=== PATIENT | female | born 1965 | race Caucasian/White ===

== ENCOUNTER 2017-10-07 15:24 | Observation (INO) | payer BC ==
[2017-10-07] VITALS (8 sets, daily range): BP systolic 102–136; BP diastolic 58–69; PULSE 101–127; RESP 16–20; TEMP 97.8–98.1; O2SAT 95–99
[~2017-10-07] VITALS: Ht 165.1 cm; Wt 81.0 kg
[2017-10-07] MEDS ORDERED: SERO100T PO (17:18)
[2017-10-07] MEDS ORDERED: LEVO.075 PO (17:18)
[2017-10-07] MEDS ORDERED: VENL75TA (17:18)
[2017-10-07] MEDS ORDERED: LAMO150T PO (17:18)
[2017-10-07] MEDS ORDERED: SODIUM CHLOR 0.9% 1000 ML INJ 1,000 ML IV SCH ×2 (17:23→20:46)
[2017-10-07] MEDS ORDERED: FAMOTIDINE 20 MG/2 ML VIAL IV PUSH ONE (17:30)
[2017-10-07] MEDS ORDERED: ONDANSETRON HCL 4 MG/2 ML VIAL IVP ONE (17:30)
[2017-10-07] MEDS ORDERED: MORPHINE SULFATE 4 MG/ML INJ IV PUSH ONE (17:30)
[2017-10-07] MEDS ORDERED: SODIUM CHLORIDE 0.9% FLUSH 10 ML FLUSH IV FLUSH PRN ×2 (17:30→21:00)
[2017-10-07 17:51] LABS: AUTOMATED NEUTROPHIL # 8.3 TH/MM3 (1.8-7.7); BASOPHIL # 0.2 TH/MM3 (0-0.2); BASOPHIL % 1.7 % (0.0-2.0); EOSINOPHIL % 0.4 % (0.0-4.0); HEMATOCRIT 38.8 % (35.0-46.0); LYMPH % 4.2 % (9.0-44.0); LYMPHOCYTE # 0.4 TH/MM3 (1.0-4.8); MEAN CELL VOLUME 92.5 FL (80.0-100.0); MEAN CORPUSCULAR HGB CONC 33.5 % (32.0-36.0); MEAN PLATELET VOLUME 7.5 FL (7.0-11.0); MONO % 4.6 % (0.0-8.0); MONOCYTE # 0.4 TH/MM3 (0-0.9); NEUT % 89.1 % (16.0-70.0); PLATELET COUNT 266 TH/MM3 (150-450); RED CELL DISTRIBUTION WIDTH 13.4 % (11.6-17.2); WHITE BLOOD COUNT 9.3 TH/MM3 (4.0-11.0)
[2017-10-07 18:02] LABS: CALCIUM 8.7 MG/DL (8.5-10.1)
[2017-10-07 18:03] LABS: BICARBONATE 25.2 MEQ/L (21.0-32.0)
[2017-10-07 18:06] LABS: CREATININE 0.86 MG/DL (0.50-1.00); PROTHROMBIN TIME - PATIENT 10.5 SEC (9.8-11.6)
[2017-10-07] MEDS ORDERED: IOHEXOL 350 MG/ML 10 ML VIAL (for RAD DIAG) IVCONTRAST ONE (18:39)
--- NOTE | 2017-10-07 18:48 | RADRPT ---
EXAM DATE/TIME: 10/07/2017 18:34 [facility] COMPARISON: No previous studies available for comparison. INDICATIONS : Epigastric pain, nausea and vomiting. IV CONTRAST: 85 cc Omnipaque 350 (iohexol) IV ORAL CONTRAST: No oral contrast ingested. RADIATION DOSE: 12.86 CTDIvol (mGy) MEDICAL HISTORY : Hypothyroidism. SURGICAL HISTORY : Cholecystectomy. ENCOUNTER: Initial ACUITY: 1 day PAIN SCALE: 5/10 LOCATION: Epigastric. TECHNIQUE: Volumetric scanning of the abdomen and pelvis was performed. Using automated exposure control and ad justment of the mA and/or kV according to patient size, radiation dose was kept as low as reasonably achievable to obtain optimal diagnostic quality images. DICOM format image data is available electro nically for review and comparison. FINDINGS: LOWER LUNGS: The visualized lower lungs are clear. LIVER: Homogeneous density without lesion. There is no dilation of the biliary tree. Previous cholecystecto my. SPLEEN: Normal size without lesion. PANCREAS: Within normal limits. KIDNEYS: Normal in size and shape. There is no mass, stone or hydronephrosis. ADRENAL GLANDS: Within normal limits. VASCULAR: There is no aortic aneurysm. BOWEL/MESENTERY: The stomach, small bowel, and colon demonstrate no acute abnormality. There is no free intraperitone al air or fluid. Normal appendix. ABDOMINAL WALL: Within normal limits. RETROPERITONEUM: There is no lymphadenopathy. BLADDER: No wall thickening or mass. REPRODUCTIVE: 22 and 32 mm simple appearing right ovarian cysts. No free fluid or perceptible inflammatory changes. INGUINAL: There is no lymphadenopathy or hernia. MUSCULOSKELETAL: Within normal limits for patient age. CONCLUSION: 1. Benign-appearing cysts of the right ovary. A followup pelvic ultrasound is suggested in 8-12 weeks to confirm resolution. 2. Otherwise negative CT of the abdomen and pelvis. I don't see a correlate for epigastric pain. Prev ious cholecystectomy. Abhay Howard MD on October 07, 2017 at 18:44 Board Certified Radiologist. This report was verified electronically.
[2017-10-07] MEDS ORDERED: LIDOCAINE VISCOUS 2% SOLN 15 ML UDC PO ONE (19:15)
[2017-10-07] MEDS ORDERED: LORazepam 0.5 MG TAB PO ONE (19:15)
[2017-10-07] MEDS ORDERED: DICYCLOMINE HCL 10 MG CAP PO ONE (19:15)
[2017-10-07] MEDS ORDERED: ALUMINUM/MAGNESIUM/SIMETH 30 ML CUP PO ONE (19:15)
--- NOTE | 2017-10-07 20:40 | PD ---
HPI Chief Complaint: Abdominal Pain Time Seen by Provider: 17:12 Travel History International Travel<30 days: No Contact w/Intl Traveler<30days: No Traveled to known affect area: No History of Present Illness HPI Patient is a 52-year-old female who comes in complaining of chest pain with nausea and vomiting. She says the pain is in her epigastric area and goes to just underneath her left breast. She says the pain is coming and going and feels like a stabbing pain. She says at first she thought it was indigestion, she tried taking some Tums today. She says that she has had his Tums and coffee today and she has been vomiting. She says the Tums did not help, and her symptoms got worse, so she came in. She does admit to being under a fair amount of stress as she has recently put her mom under hospice care. She denies any history of heart problems. She says the pain radiates through to her back. She denies fever chills. She denies cough or cold symptoms. Severity is moderate. PFSH Past Medical History Medical other: Yes (ptsd) Thyroid Disease: Yes ?: Not LMP: 09/27/17 Past Surgical History Cholecystectomy: Yes Other Surgery: Yes (breast reduction, carpal tunnel) Social History Alcohol Use: No Tobacco Use: No Substance Use: No Allergies-Medications (Allergen,Severity, Reaction): Coded Allergies: No Known Allergies (Unverified , 10/07/17) Reported Meds & Prescriptions Reported Meds & Active Scripts Active Reported Lamotrigine 150 Mg Tab 150 Mg PO DAILY Seroquel (Quetiapine Fumarate) 100 Mg Tab 150 Mg PO DAILY Effexor (Venlafaxine HCl) 75 Mg Tab 150 Mg DAILY Synthroid (Levothyroxine Sodium) 75 Mcg Tab 75 Mcg PO DAILY Review of Systems Except as stated in HPI: all other systems reviewed are Neg General / Constitutional: No: Fever, Chills HENT: No: Headaches, Lightheadedness Cardiovascular: Positive: Chest Pain or Discomfort Respiratory: No: Shortness of Breath Gastrointestinal: Positive: Nausea, Vomiting, Abdominal Pain Musculoskeletal: No: Myalgias, Edema Skin: No Rash, No Change in Pigmentation Neurologic: No: Weakness, Dizziness Physical Exam Narrative GENERAL: Awake and alert, in no acute distress. SKIN: Focused skin assessment warm/dry. No wounds or signs of infection. HEAD: Atraumatic. Normocephalic. EYES: Pupils equal and round. No scleral icterus. Extraocular movements intact. ENT: Mucous membranes pink and moist. NECK: Trachea midline. No JVD. CARDIOVASCULAR: Tachycardia. No murmur appreciated. RESPIRATORY: No accessory muscle use. Clear to auscultation. Breath sounds equal bilaterally. GASTROINTESTINAL: Abdomen soft, nondistended. Mild epigastric tenderness to palpation. MUSCULOSKELETAL: No obvious deformities. No clubbing. No cyanosis. No edema. NEUROLOGICAL: Awake and alert. No obvious cranial nerve deficits. Motor grossly within normal limits. Normal speech. PSYCHIATRIC: Appropriate mood and affect; insight and judgment normal. Data Data Last Documented VS Vital Signs Date Time Temp Pulse Resp B/P (MAP) Pulse Ox O2 Delivery O2 Flow Rate FiO2 10/07/17 18:56 118 16 107/59 (75) 96 Room Air 10/07/17 15:37 98.1 Orders Orders Basic Metabolic Panel (Bmp) (10/07/17 17:23) Complete Blood Count With Diff (10/07/17 17:23) Lipase (10/07/17:23) Prothrombin Time / Inr (Pt) (10/07/17:23) Act Partial Throm Time (Ptt) (10/07/17 17:23) Ct Abd/Pel W Iv Contrast(Rout) (10/07/17 17:23) Iv Access Insert/Monitor (10/07/17 17:23) Ecg Monitoring (10/07/17:23) Oximetry (10/07/17:23) Morphine Inj (Morphine Inj) (10/07/17 17:30) Ondansetron Inj (Zofran Inj) (10/07/17 17:30) Sodium Chlor 0.9% 1000 Ml Inj (Ns 1000 M (10/07/17 17:23) Sodium Chloride 0.9% Flush (Ns Flush) (10/07/17 17:30) Electrocardiogram (10/07/17 17:23) Famotidine Inj (Pepcid Inj) (10/07/17 17:30) Iohexol 350 Inj (Omnipaque 350 Inj) (10/07/17 18:39) Troponin I (10/07/17 19:02) Dicyclomine (Bentyl) (10/07/17 19:15) Al-Mag Hy-Si 40-40-4 Mg/Ml Liq (Mag-Al P (10/07/17 19:15) Lidocaine 2% Viscous (Xylocaine 2% Visco (10/07/17 19:15) Lorazepam (Ativan) (10/07/17 19:15) D-Dimer (10/07/17 20:14) Ventilation & Perfusion Scan (10/07/17 ) Admit Order (Ed Use Only) (10/07/17 ) Labs Laboratory Tests Test 10/07/17 14:30 10/07/17 17:30 Troponin I LESS THAN 0.02 NG/ML White Blood Count 9.3 TH/MM3 Red Blood Count 4.20 MIL/MM3 Hemoglobin 13.0 GM/DL Hematocrit 38.8 % Mean Corpuscular Volume 92.5 FL Mean Corpuscular Hemoglobin 31.0 PG Mean Corpuscular Hemoglobin Concent 33.5 % Red Cell Distribution Width 13.4 % Platelet Count 266 TH/MM3 Mean Platelet Volume 7.5 FL Neutrophils (%) (Auto) 89.1 % Lymphocytes (%) (Auto) 4.2 % Monocytes (%) (Auto) 4.6 % Eosinophils (%) (Auto) 0.4 % Basophils (%) (Auto) 1.7 % Neutrophils # (Auto) 8.3 TH/MM3 Lymphocytes # (Auto) 0.4 TH/MM3 Monocytes # (Auto) 0.4 TH/MM3 Eosinophils # (Auto) 0.0 TH/MM3 Basophils # (Auto) 0.2 TH/MM3 CBC Comment DIFF FINAL Differential Comment Prothrombin Time 10.5 SEC Prothromb Time International Ratio 1.0 RATIO Activated Partial Thromboplast Time 24.7 SEC D-Dimer Quantitative (PE/DVT) 0.91 MG/L FEU Blood Urea Nitrogen 8 MG/DL Creatinine 0.86 MG/DL Random Glucose 119 MG/DL Calcium Level 8.7 MG/DL Sodium Level 138 MEQ/L Potassium Level 3.5 MEQ/L Chloride Level 105 MEQ/L Carbon Dioxide Level 25.2 MEQ/L Anion Gap 8 MEQ/L Estimat Glomerular Filtration Rate 70 ML/MIN Lipase 129 U/L MDM Medical Decision Making Medical Screen Exam Complete: Yes Emergency Medical Condition: Yes Medical Record Reviewed: Yes Interpretation(s) ECG shows sinus tachycardia at a rate of [address] elevation or depression. Differential Diagnosis ACS vs gastritis vs GERD Narrative Course Patient is a 52 year old female who comes in complaining of epigastric pain. Exam shows no acute abnormalities. IV established, labs sent. Labs show no acute abnormalities. Patient under a lot of stress. Placed in chest pain center for ACS rule out. Diagnosis Primary Impression: Chest pain Qualified Codes: R07.9 - Chest pain, unspecified Admitting Information Admitting Physician Requests: Observation Scripts Ondansetron Odt (Zofran Odt) 4 Mg Tab 4 MG SL Q6HR Y for Nausea/Vomiting, #30 TAB 0 Refills Prov: Tom Stiles 10/08/17 Michaela Haley MD Oct 07, 2017 20:40
[2017-10-07] MEDS ORDERED: ACETAMINOPHEN 500 MG CPLT PO PRN (21:00)
[2017-10-07] MEDS ORDERED: SODIUM CHLORIDE 0.9% FLUSH 10 ML FLUSH IV FLUSH SCH (21:00)
[2017-10-07] MEDS ORDERED: ONDANSETRON HCL 4 MG/2 ML VIAL IV PUSH PRN (21:00)
[2017-10-07] MEDS ORDERED: MORPHINE SULFATE 4 MG/ML INJ IV PUSH PRN (21:00)
[2017-10-07] MEDS: ACETAMINOPHEN/HYDROcodone 325 MG/7.5 MG TAB PO PRN (21:18)
[2017-10-07 21:33] LABS: TROPONIN I LESS THAN 0.02 NG/ML (0.02-0.05)
--- NOTE | 2017-10-07 22:13 | RADRPT ---
EXAM DATE/TIME: 10/07/2017 21:32 [facility] COMPARISON: No previous studies available for comparison. INDICATIONS : Chest pain today. MEDICAL HISTORY : None. SURGICAL HISTORY : None. ENCOUNTER: Initial ACUITY: 1 day PAIN SCORE: 3/10 LOCATION: Bilateral lower chest FINDINGS: A single view of the chest demonstrates the lungs to be symmetrically aerated without evidence of mas s, infiltrate or effusion. The cardiomediastinal contours are unremarkable. Osseous structures are intact. CONCLUSION: No evidence of acute cardiopulmonary disease. Abhay Howard MD on October 07, 2017 at 22:11 Board Certified Radiologist. This report was verified electronically.
--- NOTE | 2017-10-07 23:27 | RADRPT ---
EXAM DATE/TIME: 10/07/2017 22:52 [facility] COMPARISON: CHEST SINGLE AP, October 07, 2017, 21:32. INDICATIONS : Chest pain with dyspnea nausea and vomiting. DOSE: 8.1 mCi Tc99m MAA IV 1.8 mCi Tc99m DTPA aerosol MEDICAL HISTORY : None SURGICAL HISTORY : Cholecystectomy. Breast reduction. ENCOUNTER: Initial ACUITY: 1 day PAIN SCALE: 6/10 LOCATION: Left chest TECHNIQUE: Following five minutes of tidal breathing of DTPA aerosol, planar images of the lungs were performed in eight projections. The patient was then injected with MAA, and eight-view perfusion scan was perf ormed. FINDINGS: There is a homogeneous pattern of aerosol delivery to the periphery of both lungs. No focal ventilat ory defects are seen. The perfusion lung scan demonstrates a homogenous pattern of uptake in both lungs. No segmental or s ubsegmental defects are seen. CONCLUSION: Negative exam. Low probability scan for pulmonary embolus. Eliot Licea MD on October 07, 2017 at 23:25 Board Certified Radiologist. This report was verified electronically.
[2017-10-08] VITALS: BP 105/55; PULSE 96; RESP 18; TEMP 98.2; O2SAT 96
[2017-10-08 00:15] LABS: TROPONIN I LESS THAN 0.02 NG/ML (0.02-0.05)
[2017-10-08 04:00] VITALS: BP 105/58; PULSE 88; RESP 16; TEMP 97.2; O2SAT 94
[2017-10-08 06:11] LABS: AUTOMATED NEUTROPHIL # 4.5 TH/MM3 (1.8-7.7); BASOPHIL % 0.4 % (0.0-2.0); EOSINOPHIL # 0.1 TH/MM3 (0-0.4); EOSINOPHIL % 1.6 % (0.0-4.0); HEMATOCRIT 34.5 % (35.0-46.0); HEMOGLOBIN 11.4 GM/DL (11.6-15.3); LYMPH % 15.4 % (9.0-44.0); LYMPHOCYTE # 0.9 TH/MM3 (1.0-4.8); MEAN CELL VOLUME 93.2 FL (80.0-100.0); MEAN CORPUSCULAR HEMOGLOBIN 30.9 PG (27.0-34.0); MEAN CORPUSCULAR HGB CONC 33.2 % (32.0-36.0); MEAN PLATELET VOLUME 7.7 FL (7.0-11.0); MONO % 9.2 % (0.0-8.0); MONOCYTE # 0.6 TH/MM3 (0-0.9); NEUT % 73.4 % (16.0-70.0); PLATELET COUNT 228 TH/MM3 (150-450); RED CELL DISTRIBUTION WIDTH 13.4 % (11.6-17.2); WHITE BLOOD COUNT 6.1 TH/MM3 (4.0-11.0)
[2017-10-08 06:45] LABS: BICARBONATE 28.4 MEQ/L (21.0-32.0); CALCIUM 8.5 MG/DL (8.5-10.1); CREATININE 0.66 MG/DL (0.50-1.00)
[2017-10-08 08:00] VITALS: BP 104/54; PULSE 91; RESP 16; TEMP 98.8; O2SAT 94
[2017-10-08] MEDS: ACETAMINOPHEN/HYDROcodone 325 MG/7.5 MG TAB PO PRN (08:06)
[2017-10-08] MEDS ORDERED: INFLUENZA VIRUS VACCINE (QUADRIVALENT) 0.5 ML SYR IM ONE (09:00)
--- NOTE | 2017-10-08 11:07 | EKG ---
Date Performed: 10/07/2017 Time Performed: 17:34:13 PTAGE: 52 years EKG: SINUS TACHYCARDIA POSSIBLE RIGHT VENTRICULAR CONDUCTION DELAY ST DEVIATION AND MODERATE T-W AVE ABNORMALITY, CONSIDER LATERAL ISCHEMIA ABNORMAL ECG NO PREVIOUS TRACING DOCTOR: Oscar Han Interpretating Date/Time 10/08/2017 11:05:57
--- NOTE | 2017-10-08 11:15 | EKG ---
Date Performed: 10/07/2017 Time Performed: 22:43:39 PTAGE: 52 years EKG: Sinus rhythm POSSIBLE RIGHT VENTRICULAR CONDUCTION DELAY NONSPECIFIC T-WAVE ABNORMALITY BORDERLINE ECG PREVIOUS TRACING : 10/07/2017 21.02 Since the previous tracing, no significant change noted DOCTOR: Oscar Han Interpretating Date/Time 10/08/2017 11:11:13
--- NOTE | 2017-10-08 11:15 | EKG ---
Date Performed: 10/07/2017 Time Performed: 21:02:36 PTAGE: 52 years EKG: SINUS TACHYCARDIA LOW QRS VOLTAGE IN PRECORDIAL LEADS POSSIBLE RIGHT VENTRICULAR CONDUCTION DELAY NONSPECIFIC T-WAVE ABNORMALITY ABNORMAL RHYTHM ECG PREVIOUS TRACING : 10/07/2017 17.34 Since the previous tracing, no significant change noted DOCTOR: Oscar Han Interpretating Date/Time 10/08/2017 11:11:01
--- NOTE | 2017-10-08 11:27 | HHI.HP ---
[facility] Admission Diagnosis Chest Pain Diagnoses: (1) Epigastric abdominal pain Diagnosis: Principal Chief Complaint: Abdominal pain with nausea vomiting Travel History International Travel<30 Days: No Contact w/Intl Traveler <30 Da: No Traveled to Known Affected Are: No History of Present Illness 52-year-old female with known history of posttraumatic stress disorder , hypothyroidism who presented to the hospital because of acute onset at 12 noon yesterday of epigastric abdominal pain across the entire abdomen radiating into the back. She indicates that she had significant nausea with vomiting. She did take Tums in outpatient setting without any relief. She indicates the pain started at 12 noon it remained constant 9/10 on a pain scale and continued throughout the whole day until she came to emergency department. Patient was given morphine and GI cocktail and after that the pain resolved at approximately 7 PM. Patient states that there was some shortness of breath and dyspnea. Denies any diaphoresis, lightheadedness, dizziness. Patient denies any history of any cardiac workup. Patient denies any past medical history of any cardiac etiology. She does not smoke. Her father is with myocardial infarction. Because the patient's symptoms ER physician recommended that the patient be observed in the chest pain center to rule out any cardiac etiology. Presently the patient is asymptomatic. Risk factors would be because of age and family history of heart disease. At the time evaluating patient she remains asymptomatic. She has not had any recurrent abdominal pain or nausea or vomiting. Review of Systems Gastrointestinal: COMPLAINS OF: Abdominal pain, Nausea, Vomiting Except as stated in HPI: all other systems reviewed are Neg Past Family Social History Past Medical History Hypothyroidism Posttraumatic stress disorder Past Surgical History Carpal tunnel surgery Left knee meniscus surgery Cholecystectomy Breast reduction Right arm elbow nerve surgery Reported Medications Reported Meds & Active Scripts Active Reported Lamotrigine 150 Mg Tab 150 Mg PO DAILY Seroquel (Quetiapine Fumarate) 100 Mg Tab 150 Mg PO DAILY Effexor (Venlafaxine HCl) 75 Mg Tab 150 Mg DAILY Synthroid (Levothyroxine Sodium) 75 Mcg Tab 75 Mcg PO DAILY Allergies: Coded Allergies: No Known Allergies (Unverified , 10/07/17) Family History Reviewed and significant for mother still alive with lung cancer with metastasis , father from myocardial infarction with history of diabetes Social History patient denies any tobacco, alcohol or illicit drugs Physical Exam Vital Signs Vital Signs Date Time Temp Pulse Resp B/P (MAP) Pulse Ox O2 Delivery O2 Flow Rate FiO2 10/08/17 08:00 98.8 91 16 104/54 (71) 94 10/08/17 04:00 97.2 88 16 105/58 (74) 94 10/08/17 00:00 98.2 96 18 105/55 (72) 96 10/07/17 22:53 96 21 10/07/17 21:24 10/07/17 21:21 114 18 102/61 (75) 96 Room Air 10/07/17 21:15 97.8 109 18 108/58 (75) 95 10/07/17 18:56 118 16 107/59 (75) 96 Room Air 10/07/17 18:28 112 20 119/68 (85) 98 10/07/17 17:32 98 10/07/17 17:15 127 20 119/68 (85) 99 10/07/17 15:37 98.1 101 16 136/69 (91) 96 Physical Exam GENERAL: Well-developed, well-nourished, in no acute distress. alert and orientated HEENT: Head is normocephalic without any lesions or masses noted. Facial features are symmetric. Eyes: Pupils equal round reactive to light. Extraocular muscles are intact. Conjunctivae were clear. Oropharyngeal: Pharynx without any erythema edema. Tongue is midline without deviation. Buccal mucosa is moist without any masses or lesions NECK: Supple without any masses. Trachea midline no deviation. No JVD, no bruits are appreciated CARDIAC: Regular rhythm, regular rate. S1/S2 are heard. No murmurs gallops or rubs. LUNGS: Clear to auscultation bilaterally. No wheeze, rhonchi or rales. No use of accessory muscles on inspiration or expiration. ABDOMEN: Soft, nontender. Nondistended. Bowel sounds heard in all 4 quadrants. No organomegaly or masses. Negative rebound, negative guarding EXTREMITIES: No edema, pulses are equal bilaterally. No cyanosis or clubbing NEUROLOGY: Mood and affect appear appropriate. Cranial nerves II through XII grossly intact. Muscle strength 5/5 in upper and lower extremities bilaterally. Deep tendon reflexes are 2+ in upper and lower extremities bilaterally. Laboratory Laboratory Tests Test 10/07/17 14:30 10/07/17 17:30 10/07/17 21:07 10/07/17 23:50 Troponin I LESS THAN 0.02 LESS THAN 0.02 LESS THAN 0.02 White Blood Count 9.3 Red Blood Count 4.20 Hemoglobin 13.0 Hematocrit 38.8 Mean Corpuscular Volume 92.5 Mean Corpuscular Hemoglobin 31.0 Mean Corpuscular Hemoglobin Concent 33.5 Red Cell Distribution Width 13.4 Platelet Count 266 Mean Platelet Volume 7.5 Neutrophils (%) (Auto) 89.1 Lymphocytes (%) (Auto) 4.2 Monocytes (%) (Auto) 4.6 Eosinophils (%) (Auto) 0.4 Basophils (%) (Auto) 1.7 Neutrophils # (Auto) 8.3 Lymphocytes # (Auto) 0.4 Monocytes # (Auto) 0.4 Eosinophils # (Auto) 0.0 Basophils # (Auto) 0.2 CBC Comment DIFF FINAL Differential Comment Prothrombin Time 10.5 Prothromb Time International Ratio 1.0 Activated Partial Thromboplast Time 24.7 D-Dimer Quantitative (PE/DVT) 0.91 Blood Urea Nitrogen 8 Creatinine 0.86 Random Glucose 119 Calcium Level 8.7 Sodium Level 138 Potassium Level 3.5 Chloride Level 105 Carbon Dioxide Level 25.2 Anion Gap 8 Estimat Glomerular Filtration Rate 70 Lipase 129 Total Creatine Kinase 107 110 Creatine Kinase MB 0.8 1.0 Test 10/08/17 05:17 White Blood Count 6.1 Red Blood Count 3.70 Hemoglobin 11.4 Hematocrit 34.5 Mean Corpuscular Volume 93.2 Mean Corpuscular Hemoglobin 30.9 Mean Corpuscular Hemoglobin Concent 33.2 Red Cell Distribution Width 13.4 Platelet Count 228 Mean Platelet Volume 7.7 Neutrophils (%) (Auto) 73.4 Lymphocytes (%) (Auto) 15.4 Monocytes (%) (Auto) 9.2 Eosinophils (%) (Auto) 1.6 Basophils (%) (Auto) 0.4 Neutrophils # (Auto) 4.5 Lymphocytes # (Auto) 0.9 Monocytes # (Auto) 0.6 Eosinophils # (Auto) 0.1 Basophils # (Auto) 0.0 CBC Comment DIFF FINAL Differential Comment Blood Urea Nitrogen 6 Creatinine 0.66 Random Glucose 97 Calcium Level 8.5 Sodium Level 141 Potassium Level 3.9 Chloride Level 107 Carbon Dioxide Level 28.4 Anion Gap 6 Estimat Glomerular Filtration Rate 95 Result Diagram: 10/08/17 0517 10/08/17 0517 Imaging Last Impressions Abdomen/Pelvis CT 10/07/17 1723 Signed Impressions: Service Date/Time: September 18:34 - CONCLUSION: 1. Benign-appearing cysts of the right ovary. A followup pelvic ultrasound is suggested in 8-12 weeks to confirm resolution. 2. Otherwise negative CT of the abdomen and pelvis. I don't see a correlate for epigastric pain. Previous cholecystectomy. Abhay Howard MD Lung Scan-V Nuclear Medicine 10/07/17 0000 Signed Impressions: Service Date/Time: September 22:52 - CONCLUSION: Negative exam. Low probability scan for pulmonary embolus. Eliot Licea MD Chest X-Ray 10/07/17 0000 Signed Impressions: Service Date/Time: September 21:32 - CONCLUSION: No evidence of acute cardiopulmonary disease. Abhay Howard MD Capbaltazari VTE Risk Assessment Caprini VTE Risk Assessment: No/Low Risk (score <= 1) Caprini Risk Assessment Model Point Value = 1 Point Value = 2 Point Value = 3 Point Value = 5 Age 41-60 Minor surgery BMI > 25 kg/m2 Swollen legs Varicose veins or History of unexplained or recurrent spontaneous Oral contraceptives or hormone replacement Sepsis (< 1 month) Serious lung disease, including pneumonia (< 1 month) Abnormal pulmonary function Acute myocardial infarction Congestive heart failure (< 1 month) History of inflammatory bowel disease Medical patient at bed rest Age 61-74 Arthroscopic surgery Major open surgery (> 45 min) Laparoscopic surgery (> 45 min) Malignancy Confined to bed (> 72 hours) Immobilizing plaster cast Central venous access Age >= 75 History of VTE Family history of VTE Factor V Leiden Prothrombin [id number] Lupus anticoagulant Anticardiolipin antibodies Elevated serum homocysteine Heparin-induced thrombocytopenia Other congenital or acquired thrombophilia Stroke (< 1 month) Elective arthroplasty Hip, pelvis, or leg fracture Acute spinal cord injury (< 1 month) Prophylaxis Regimen Total Risk Factor Score Risk Level Prophylaxis Regimen 0-1 Low Early ambulation 2 Moderate Order ONE of the following: *Sequential Compression Device (SCD) *Heparin 5000 units SQ BID 3-4 Higher Order ONE of the following medications: *Heparin 5000 units SQ TID *Enoxaparin/Lovenox 40 mg SQ daily (WT < 150 kg, CrCl > 30 mL/min) *Enoxaparin/Lovenox 30 mg SQ daily (WT < 150 kg, CrCl > 10-29 mL/min) *Enoxaparin/Lovenox 30 mg SQ BID (WT < 150 kg, CrCl > 30 mL/min) AND/OR *Sequential Compression Device (SCD) 5 or more Highest Order ONE of the following medications: *Heparin 5000 units SQ TID (Preferred with Epidurals) *Enoxaparin/Lovenox 40 mg SQ daily (WT < 150 kg, CrCl > 30 mL/min) *Enoxaparin/Lovenox 30 mg SQ daily (WT < 150 kg, CrCl > 10-29 mL/min) *Enoxaparin/Lovenox 30 mg SQ BID (WT < 150 kg, CrCl > 30 mL/min) AND *Sequential Compression Device (SCD) Assessment and Plan Assessment and Plan Epigastric abdominal pain with associated nausea vomiting, possible cardiac symptoms Pain resolved after morphine and GI cocktail Chest x-ray, VQ scan, CT of the abdomen were unremarkable for any etiology Laboratory studies, lipase level were unremarkable for any acute abdominal etiology Patient with low risk factors for coronary artery disease to include age and family history of heart disease Patient has been ruled out for acute coronary event with serial cardiac enzymes are negative Serial EKG shows sinus rhythm without any changes Exercise stress test was performed which did not indicate any underlying ischemia. DVT prevention Low risk, early ambulation Discharge disposition Discharge home in stable condition Activity: Ad tamia. Diet: Healthy heart diet Medication per medication reconciliation Follow-up of her medical doctor in 1 week Tom Stiles Oct 08, 2017 11:27
--- NOTE | 2017-10-08 12:13 | TR ---
Date Performed: 10/08/2017 Time Performed: 11:52:23 DOCTOR: Jenn Monreal DRUG LIST: CLINICAL HISTORY: CHEST PAIN REASON FOR TEST: Angina REASON FOR ENDING: Completed Protocol OBSERVATION: Arrhythmia: None Chest Pain: None CONCLUSION: Patient tolerated BOYD protocol with Total Exercise Time=6:03 Maximum NR=769 % Max HR Jxjklara=584.0% Maximum IA=180/78, patient was asymtomatic during procedure, Testing stopped secon mari to goals acheived, Patient reached Target HR, During peak exercise, patient had quick upsloping ST segments. No significant ST depressions, HR and BP appropriate response to exercise, Recovery anne od HR and BP returned to baseline COMMENTS: No ischemia
--- NOTE | 2017-10-08 12:16 | HHI.DCPOC ---
Discharge Care Plan Diagnosis: (1) Epigastric abdominal pain Goals to Promote Your Health * To prevent worsening of your condition and complications * To maintain your health at the optimal level Directions to Meet Your Goals Take your medications as prescribed Follow your dietary instruction Follow activity as directed Keep your appointments as scheduled Take your immunizations and boosters as scheduled If your symptoms worsen call your PCP, if no PCP go to Urgent Care Center or Emergency Room Smoking is Dangerous to Your Health. Avoid second hand smoke Call the 24-hour hour crisis hotline for domestic abuse at Tom Stiles Oct 08, 2017 12:15
[2017-10-08] MEDS ORDERED: ZOFR4TAB3 SL (13:17)
== END 2017-10-08 13:43 | disposition home or self-care (01) ==
LOC: PHED 15:24 → PHEDA 20:43 → PH3B 21:27
PROVIDERS: ADMIT Hospitalist; ATTEND Hospitalist
DX: R10.13 Epigastric pain (principal); R11.2 Nausea with vomiting, unspecified; R07.9 Chest pain, unspecified; R06.02 Shortness of breath; R00.0 Tachycardia, unspecified; I20.9 Angina pectoris, unspecified; E03.9 Hypothyroidism, unspecified; N83.201 Unspecified ovarian cyst, right side; F43.10 Post-traumatic stress disorder, unspecified; Z79.899 Other long term (current) drug therapy; Z82.49 Family history of ischemic heart disease and other diseases of the circulatory system
CPT/HCPCS: 71045; 74177; 78582; 80048; 82550; 82552; 83690; 84484; 85025; 85379; 85610; 85730; 90471; 90686; 93005; 93017; 96361; 96374; 96375; 96376; 99285; A9540; A9567; G0378; J2270; J2405; J7030; Q9967; G0008; Q2038